=== PATIENT | female | born 1975 | race Caucasian/White ===

== ENCOUNTER 2016-08-03 14:05 | Emergency (ER) | payer BC, MEDICAID ==
[~2016-08-03] VITALS: Wt 71.6 kg
[~2016-08-03 14:05] MED LIST: AMOX1TAB10 PO; HYDR-3498 PO
[2016-08-03] MEDS ORDERED: HYDROmorphONE 1 MG/ML SYG IV STA (15:48)
[2016-08-03] MEDS ORDERED: ONDANSETRON 4 MG INJ IV STA (15:48)
[2016-08-03] MEDS ORDERED: SOD CHLORIDE 0.9% 1,000 ML IV STA (15:48)
[2016-08-03 16:26] LABS: BASOPHIL # 0.1 10^3/ul (0.0-0.1); EOSINOPHILS # 0.3 10^3/ul (0.0-0.5); EOSINOPHILS % 2.4 % (0.0-7.0); HEMATOCRIT 36.2 % (37.0-47.0); HEMOGLOBIN 12.1 g/dl (12.0-16.0); LYMPHOCYTES # 2.6 10^3/ul (0.8-2.9); LYMPHOCYTES % 25.5 % (15.0-51.0); MEAN CORPUSCULAR HGB CONC 33.5 g/dl (32.0-37.0); MEAN CORPUSCULAR VOLUME 83.7 fl (82.0-101.0); MEAN PLATELET VOLUME 9.3 fl (7.4-10.4); MONOCYTE # 0.6 10^3/ul (0.3-0.9); MONOCYTES % 6.1 % (0.0-11.0); NEUTROPHIL # 6.7 10^3/ul (1.6-7.5); PLATELET COUNT 249 10^3/UL (140-440); RED BLOOD COUNT 4.33 10^6/ul (4.20-5.40); RED CELL DISTRIBUTION WIDTH 16.2 % (11.5-14.5); UNCORRECTED WBC 10.3 10^3/ul (4.8-10.8); WHITE BLOOD COUNT 10.3 10^3/ul (4.8-10.8)
[2016-08-03 16:33] LABS: CONDITION 1; LH ANALYZER COMMENTS 1
[2016-08-03 16:39] LABS: ALBUMIN 4.1 g/dl (3.3-4.9)
[2016-08-03 16:40] LABS: POTASSIUM 4.3 mmol/L (3.5-5.1)
[2016-08-03 16:41] LABS: CREATININE 0.64 mg/dl (0.44-1.00)
[2016-08-03 16:42] LABS: ALBUMIN/GLOBULIN RATIO 1.1; BILIRUBIN,INDIRECT 0.1 mg/dl (0-1.1); BILIRUBIN,TOTAL 0.1 mg/dl (0.2-1.3); TOTAL PROTEIN 7.8 g/dl (6.1-8.1)
[2016-08-03 16:43] LABS: CALCIUM 8.6 mg/dl (8.4-10.2)
[2016-08-03 17:53] LABS: ADD UMIC NO; URINE BILIRUBIN (Dip) NEGATIVE (NEGATIVE); URINE BLOOD (Dip) NEGATIVE (NEGATIVE); URINE COLOR LT. YELLOW (YELLOW); URINE GLUCOSE (Dip) NEGATIVE (NEGATIVE); URINE KETONES (Dip) NEGATIVE (NEGATIVE); URINE LEUKOCYTE ESTERASE (Dip) NEGATIVE (NEGATIVE); URINE NITRITE (Dip) NEGATIVE (NEGATIVE); URINE TOTAL PROTEIN (Dip) NEGATIVE (NEGATIVE); URINE UROBILINOGEN (Dip) 0.2 E.U./dL (0.1-1.0)
[2016-08-03] MEDS ORDERED: SOD CHLORIDE 0.9% 100 ML ONE (17:54)
[2016-08-03] MEDS ORDERED: IOHEXOL 300MG/ML 150 ML BTL ONE (17:54)
--- NOTE | 2016-08-03 18:46 | RADRPT ---
PROCEDURE: CT abdomen and pelvis with contrast CLINICAL INDICATION: Abdominal pain TECHNIQUE: Continues 2.5 mm axial images were obtained from the domes of the diaphragms to the inf erior pubic rami following intravenous injection of 100 cc of Isovue 300. The calculated dose lengt h product (DLP) = 536.21 mGy-cm. Exam CTDlvol = 9.79 mGy. One or more of the following dose reduc tion techniques were used: Automated exposure control, adjustment of the mA and or KV according to p atient size, or use of iterative reconstruction technique. COMPARISON: 07/25/2016 FINDINGS: Images through the lung bases demonstrate minimal dependent atelectasis. No pleural pericardial flu id is seen. Gallbladder surgically absent. No significant biliary duct dilatation is seen. There is a 5 mm rou nd low-attenuation lesion in the posterior right hepatic lobe which is too small to characterize, bu t likely represents a cyst. Otherwise, liver, pancreas, spleen, adrenals, and kidneys are within no rmal limits. There is no obstructive uropathy. Aorta is normal in caliber. There are no pathologi renato enlarged mesenteric lymph nodes. The stomach and small bowel loops are within normal limits. There is no small bowel dilatation or obstruction. No free fluid, free air, abscess is noted in th e upper abdomen CT pelvis: Images through the pelvis demonstrate no intraperitoneal free fluid, free air, abscess. Bladder is partially distended grossly unremarkable. There is fluid within the endometrial canal s uggesting later stage of menstrual cycle. Involuting left ovarian cyst is seen. The adnexa are oth erwise grossly unremarkable. Evaluation of the colon demonstrates no diverticulosis, diverticulitis or acute colitis. There is moderate constipation. The appendix is surgically absent. Terminal il eum is unremarkable. No pathologically enlarged iliac chain lymph nodes are seen. There are tiny pockets of subcutaneous air in the anterior pelvic wall. This may be related to rece nt subcutaneous injection. There is no injection, this may represent postoperative change versus a enteric cutaneous fistula. Clinical correlation is advised. No destructive bony lesions are seen. IMPRESSION: 1. Moderate constipation. No associated colitis. 2. Status post appendectomy and cholecystectomy. 3. Involuting left ovarian cyst. If indicated this can be better evaluated with pelvic ultrasound 4. Tiny pockets of air in the anterior pelvic wall. This may be related to subcutaneous injection; however entero-cutaneous fistula is not excluded. Recommend clinical correlation. 5. No intraperitoneal free fluid, free air, abscess RPTAT: HH .Jimmy Mendosa MD, Date Time Electronically viewed and signed by .Jimmy Mendosa MD, on 08/03/2016 18:45 .W/
[2016-08-03] MEDS ORDERED: ONDA4TAB14 PO (19:01)
[2016-08-03] MEDS ORDERED: HYDR-902 PO (19:01)
--- NOTE | 2016-08-03 19:04 | ERD ---
ER Documentation Chief Complaint Date/Time DATE: 08/03/16 TIME: 19:02 Chief Complaint right side abd pain status post appendectomy 1 week ago. HPI Patient is a 41-year-old female with no medical problems who presents with right lower quadrant abdominal pain. She had her appendix removed 1 week ago and started with pain last night. She feels like "something ripped". She had bent over after a shower and felt the pain. The pain was worse today so she came to the emergency department. She has no fevers. Her surgeon was Dr. Graff. ROS All systems reviewed and are negative except as per history of present illness. 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 07/26/16 Allergies Allergies: Coded Allergies: No Known Allergy (Unverified , 08/03/16) PMhx/Soc History of Surgery: Yes (CHOLECYSTECTOMY) Anesthesia Reaction: No Hx Neurological Disorder: No Hx Respiratory Disorders: No Hx Cardiac Disorders: No Hx Psychiatric Problems: No Hx Miscellaneous Medical Probl: Yes (MIGRAINE) Hx Alcohol Use: No Hx Substance Use: No Hx Tobacco Use: No Smoking Status: Never smoker FmHx Family History: diabetes Physical Exam Vitals Vital Signs Date Time Temp Pulse Resp B/P Pulse Ox O2 Delivery O2 Flow Rate FiO2 08/03/16 14:10 98.5 77 20 118/65 98 Physical Exam Const: Mild distress secondary to pain Head: Atraumatic Eyes: Normal Conjunctiva ENT: Normal External Ears, Nose and Mouth. Neck: Full range of motion..~ No meningismus. Resp: Clear to auscultation bilaterally Cardio: Regular rate and rhythm, no murmurs Abd: Soft, right lower quadrant pain without rebound or guarding Skin: No petechiae or rashes Back: No midline or flank tenderness Ext: No cyanosis, or edema Neur: Awake and alert Psych: Normal Mood and Affect Result Diagram: 08/03/16 1610 08/03/16 1610 Results 24 hrs Laboratory Tests Test 08/03/16 16:10 08/03/16 17:31 Alanine Aminotransferase (ALT/SGPT) 39IU/L Albumin 4.1g/dl Albumin/Globulin Ratio 1.10 Alkaline Phosphatase 53IU/L Anion Gap 16 Aspartate Amino Transf (AST/SGOT) 31IU/L Basophils # 0.110^3/ul Basophils % 1.0% Blood Morphology Comment Blood Urea Nitrogen 19mg/dl Calcium Level 8.6mg/dl Carbon Dioxide Level 22mmol/L Chloride Level 105mmol/L Creatinine 0.64mg/dl Direct Bilirubin 0.00mg/dl Eosinophils # 0.310^3/ul Eosinophils % 2.4% Globulin 3.70g/dl Glucose Level 85mg/dl Hematocrit 36.2% Hemoglobin 12.1g/dl Indirect Bilirubin 0.1mg/dl Lipase 174U/L Lymphocytes # 2.610^3/ul Lymphocytes % 25.5% Mean Corpuscular Hemoglobin 28.0pg Mean Corpuscular Hemoglobin Concent 33.5g/dl Mean Corpuscular Volume 83.7fl Mean Platelet Volume 9.3fl Monocytes # 0.610^3/ul Monocytes % 6.1% Neutrophils # 6.710^3/ul Neutrophils % 65.0% Nucleated Red Blood Cells # 0.010^3/ul Nucleated Red Blood Cells % 0.0/100WBC Platelet Count 99432^3/UL Potassium Level 4.3mmol/L Red Blood Count 4.3310^6/ul Red Cell Distribution Width 16.2% Serum HCG, Qualitative NEGATIVE Sodium Level 139mmol/L Total Bilirubin 0.1mg/dl Total Protein 7.8g/dl White Blood Count 10.310^3/ul Urine Bilirubin NEGATIVE Urine Clarity CLEAR Urine Color LT. YELLOW Urine Glucose NEGATIVE% Urine Hemoglobin NEGATIVE Urine Ketones NEGATIVE Urine Leukocyte Esterase NEGATIVE Urine Nitrite NEGATIVE Urine Specific [place] 1.020 Urine Total Protein NEGATIVE Urine Urobilinogen 0.2 E.U./dL Urine pH 5.5 Current Medications Medications (Trade) Dose Ordered Sig/Supa Route PRN Reason Start Time Stop Time Status Last Admin Dose Admin Sodium Chloride (NS) 1,000 ml @ 1,000 mls/hr Q1H STAT IV 08/03/16 15:48 08/03/16 16:47 DC 08/03/16 16:20 Hydromorphone HCl (Dilaudid) 1 mg ONCE STAT IV 08/03/16 15:48 08/03/16 15:49 DC 08/03/16 16:20 Ondansetron HCl (Zofran Inj) 4 mg ONCE STAT IV 08/03/16 15:48 08/03/16 15:49 DC 08/03/16 16:19 Iohexol 150 ml 150 ml STK-MED ONCE .ROUTE 08/03/16 17:54 08/03/16 17:55 DC Sodium Chloride (NS) 100 ml @ ud STK-MED ONCE .ROUTE 08/03/16 17:54 08/03/16 17:55 DC Procedures/MDM CT shows no acute surgical process per radiology. Patient is a 41-year-old female presents with right lower quadrant abdominal pain post appendectomy. The patient had a CT scan which shows no obvious intra- abdominal abscess or bowel obstruction. There is no other surgical process at this time. Laboratory studies are normal including normal white blood cell count and electrolytes. At this point I believe outpatient management is appropriate. I spoke with Dr. Graff and we believe that outpatient management is appropriate. The patient can return sooner for any worsening symptoms. I did provide a copy of laboratory studies and imaging test results prior to discharge. The patient be discharged with [place] and Zofran prescriptions. Departure Diagnosis: Primary Impression: Abdominal pain Abdominal location: right lower quadrant Qualified Code: R10.31 - Right lower quadrant abdominal pain Condition: Fair Patient Instructions: Abdominal Pain Referrals: CHER GRAFF MD Additional Instructions: Specialist:Usted tiene deneen condicin mdica que requiere que andrés a un especialista dentro de los prximos 1-2 kim.POR FAVOR,CON LYLE SEGUIMIENTO DE PRIMARIA PHSICIAN refferal. SI USTED NO TIENE UN MDICO GENERAL Y / O USTED NO PUEDE PAGAR mohini a un mdico,los siguientes edwards RECURSOS sido suministrado a usted. ES LYLE RESPONSABILIDAD PARA SER VISTOS POR EL ESPECIALISTA: JEANINE KRUEGER MD Aug 03, 2016 19:04
[2016-08-03 19:15] VITALS: BP 112/77; PULSE 74; RESP 17; TEMP 98.6
== END 2016-08-03 19:18 | disposition home or self-care (01) ==
LOC: E/R 14:05
DX: R10.31 Right lower quadrant pain (principal)
CPT/HCPCS: 74177; 80053; 81003; 83690; 84703; 85025; J1170; J2405; J7030; Q9967; 36415; 96374; 96375